=== PATIENT | male | born 1960 | race Caucasian/White ===

== ENCOUNTER 2019-07-22 15:58 | Inpatient (IN) | payer MEDICAID ==
[2019-07-22] VITALS (17 sets, daily range): BP systolic 85–132; BP diastolic 42–91; BMI 24.0
[~2019-07-22] VITALS: Ht 177.8 cm; Wt 76.0 kg
--- NOTE | ~2019-07-22 | HEMODYNAMI ---
PATIENT:LELIA YOUNG MEDICAL RECORD: [id number] : 60 LOCATION:[facility] ADMISSION DATE: 07/22/19 Generatedon:07/23/20199:06 Patient name: LELIA YOUNG Patient #: [id number] SSN: [id number] : 1960 Date of study: 07/23/2019 Page: Of Hemodynamic Procedure Report Patient Data Patient Demographics Procedure consent was obtained First Name: LELIA Gender: Male Last Name: HANNAH : 1960 Patient #: [id number] Age: 58 year(s) Race: SSN: [id number] Additional ID: [id number] Contact details [address]: [address] [place] [address] State: [place] City: [place] Zip code: [address] Past Medical History Allergies: No known allergies Admission Admission Data Admission Date: 07/22/2019 Admission Time: 17:53 Arrival Date: 07/23/2019 Arrival Time: 0:00 Room #: AJ Height (in.): 70.08 BSA: 1.94 (m2) Height (cm.): 178 BMI: 23.99 (kg/m2) Weight (lbs.): 167.55 Weight (kg.): 76 Lab Results Lab Result Date: 07/23/2019 Lab Result Time: 0:00 Biochemistry Name Units Result Min Max BUN mg/dl 11 --(-*--)-- 7 18 Creatinine mg/dl 1 --(--*-)-- 0.6 1.3 eGFR ml/min 81 *-(----)-- 90 120 NONAFRICAN CBC Name Units Result Min Max Hematocrit % 45.8 --(-*--)-- 42 54 Hemoglobin g/dl 14.9 --(-*--)-- 13.5 17.5 Procedure Procedure Types Cath Procedure Diagnostic Procedure C [facility] w/Coronaries Sedation Charges Moderate Sedation up to 45 minutes PCI Procedure Coronary Stent Coronary Stent Initial Hemochron ACT Test Peripheral Cath Diagnostic Procedure Abd/Extremity Aortagram Procedure Description Procedure Date Procedure Date: 07/23/2019 Procedure Start Time: 7:37 Procedure End Time: 8:26 Procedure Staff Name Function Gael Bhatt MD Performing Physician Pratibha Casey RT Monitor Eve Templeton RT Scrub Taryn Emerita RT Monument Setter Suzanne Floyd RN Nurse Procedure Data Cath Procedure Fluoroscopy Diagnostic fluoroscopy Total fluoroscopy Time: 6.4 time: 6.4 min min Diagnostic fluoroscopy Total fluoroscopy dose: 748 dose: 748 mGy mGy Contrast Material Contrast Material Type Amount (ml) Isovue 300 109 Entry Location Entry Primary Successful Side Size Upsize Upsize Entry Closure Succes sful Closure Location (Fr) 1 (Fr) 2 (Fr) Remarks Device Remarks Femoral Left 6 Fr Exoseal artery Short Estimated blood loss: 10 ml Diagnostic catheters Device Type Used For End Catheter Placement MULTIPACK JL 4.0 5Fr Left Coronary catheter Angiography MULTIPACK 3DRC 5Fr Right Coronary catheter Angiography MULTIPACK Pigtail 5 Fr LV Angiography catheter Procedure Complications No complications Procedure Medications Medication Administration Route Dosage 0.9% NaCl I.V. 100 ml/hr Oxygen etCO2 Nasal cannula 2 l/min Lidocaine 2% added to field 20 Heparin Flush Bag added to field 2 bags (1000units/500ml NS) Versed I.V. 2 mg Fentanyl I.V. 50 mcg Versed I.V. 2 mg Fentanyl I.V. 50 mcg Versed I.V. 2 mg Heparin Bolus I.V. 7500 units Plavix P.O. 600 mg Hemodynamics Rest BSA: 1.94 (m2) HGB: 14.9 (g/dl) O2 Consumption: Estimated: 236.31 (ml/min) O2 Co nsumption indexed: Estimated:121.81 (ml/min/m) Heart Rate: 80 (bpm) Pressure Samples Time Site Value (mmHg) Purpose Heart Use Rate(bpm) 8:01 LV 86/2,18 Snapshot 72 8:02 LV 88/6,19 Pullback 70 8:02 AO 81/52(64) Pullback 70 Gradients Valve Time Site 1 Site 2 Mean SEP/DFP Peak To Heart Use (mmHg) (sec/min) Peak Rate (mmHg) (bpm) Aortic 8:02 LV AO 8 19 7 70 88/6,19 81/52(64) Calculations Valve P-P Mean Valve Index Valve Source Name Gradient Area Flow (cm2) Aortic 7 8 7 8 Snapshots Pre Cath Intra NCS Post Cath Vital Signs Time Heart Resp SPO2 etCO2 NIBP Rhythm Pain Sedation Rate (ipm) (%) (mmHg) (mmHg) Status Level (bpm) 7:27:46 77 18 97 17.9 124/80(99) NSR 0 (11) 10(A) , No pain 7:32:00 78 23 98 12.6 120/71(83) NSR 0 (11) 10(A) , No pain 7:36:12 76 20 96 16.4 99/69(82) NSR 0 (11) 10(A) , No pain 7:40:14 75 20 98 12 109/78(89) NSR 0 (11) 10(A) , No pain 7:44:20 74 34 98 15.6 94/75(81) NSR 0 (11) 10(A) , No pain 7:48:19 75 19 97 22.4 107/74(83) NSR 0 (11) 10(A) , No pain 7:52:25 72 16 97 22.4 86/69(77) NSR 0 (11) 9(A) , No pain 7:56:23 76 18 98 21.6 98/70(80) NSR 0 (11) 9(A) , No pain 8:00:28 71 18 97 23.9 93/63(74) NSR 0 (11) 9(A) , No pain 8:04:30 73 24 98 23.1 101/69(83) NSR 0 (11) 9(A) , No pain 8:08:36 74 15 98 23.8 95/63(72) NSR 0 (11) 9(A) , No pain 8:12:40 75 30 97 23.1 96/64(76) NSR 0 (11) 9(A) , No pain 8:16:46 76 18 97 19.4 100/60(76) NSR 0 (11) 9(A) , No pain 8:20:51 75 21 94 20.9 105/66(78) NSR 0 (11) 9(A) , No pain 8:24:55 81 9 94 19.4 94/79(88) NSR 0 (11) 9(A) , No pain Medications Time Medication Route Dose Verified Delivered Reason Notes Effectiveness by by 7:31:05 0.9% NaCl I.V. 100 Gael Suzanne used for ml/hr Miller Floyd nutrition representative 7:31:12 Oxygen etCO2 2 Gael Suzanne used for Nasal l/min Miller Floyd procedure cannula RN 7:31:18 Lidocaine 2% added 20ml Gael Gael for local to vial Miller Bhatt MD anesthetic field 7:31:23 Heparin Flush added 2 Gael Gael used for Bag to bags Miller Bhatt MD procedure (1000units/500ml field NS) 7:31:33 Versed I.V. 2 mg Gael Suzanne for sedation Miller Floyd RN 7:31:38 Fentanyl I.V. 50 Gael Suzanne for sedation mcg Miller Floyd RN 7:38:41 Versed I.V. 2 mg Gael Suzanne for sedation Miller Floyd RN 7:38:48 Fentanyl I.V. 50 Gael Suzanne for sedation mcg Miller Floyd RN 7:43:54 Versed I.V. 2 mg Gael Suzanne for sedation Miller Floyd RN 8:04:13 Heparin Bolus I.V. 7500 Gael Suzanne for verifi ed units Miller Floyd anticoagulation with Dr. SAMINA Bhatt 8:26:05 Plavix P.O. 600 Gael Suzanne for mg Miller Floyd antiplatelet RN therapy Procedure Log Time Note 7:08:16 Informed consent obtained and on chart 7:09:01 Procedure Status Urgent Heart Cath (IP). 7:09:02 Time tracking: Regular hours (M-F 7:00 - 5:00) 7:09:11 Plan of Care:Hemodynamics will remain stable., Cardiac rhythm will remain stable., Comfort level will be maintained., Respiratory function will remain adequate., Patient/ family verbilizes understanding of procedure., Procedure tolerated without complication., Recovers from procedure without complications.. 7:11:46 Suzanne Floyd RN sent for patient. Start room use. 7:15:52 Lab Result : Hemoglobin 14.9 g/dl 7:15:52 Lab Result : Hematocrit 45.8 % 7:15:52 Lab Result : eGFR NONAFRICAN 81 ml/min 7:15:52 Lab Result : BUN 11 mg/dl 7:15:52 Lab Result : Creatinine 1 mg/dl 7:16:37 Arrival Date: 07/23/2019 12:00:00 AM 7:16:45 Patient Height : 70.08 inches 7:16:52 Patient Weight : 167.55 lbs 7:21:16 Patient received from CVICU to CCL 1 Alert and oriented. Tansferred to table in Supine position. 7:21:18 Warm blankets applied, and ruba hugger turned on for patient comfort. 7:21:19 Correct patient and procedure confirmed by team. 7:21:20 ECG and BP/O2 sat monitors applied to patient. 7:21:40 Patient allergic to No known allergies 7:21:53 Risk of Mortality: 0.6 7:21:57 Risk of blood transfusion: 0.5 7:22:02 Risk of JEISON: 4.7 7:22:08 Lab results completed and on chart. 7:22:14 Stress Test: no; N/A ? 7:22:39 ACC Patient presents with STEMI CCS Anginal Class 4--Inability to carry out any physical activity w/o angina. Angina may occur at rest. 7:22:54 H&P Date Dictated: 07/23/2019 Within 30 days and on chart., ER History on chart.. 7:22:57 Pre-procedure instructions explained to patient. 7:22:59 Pre-op teaching completed and patient verbalized understanding. 7:23:01 Family unavailable. 7:23:04 Patient NPO since Midnight. 7:23:13 Is the patient allergic to Iodine/contrast media? No. 7:23:16 Was the patient premedicated? Yes 7:23:26 Is patient on blood thinner?Yes 7:23:31 ACC The patient was administered the following blood thiners within the last 24 hours: ACCLovenox 7:26:47 Vital chart was started 7:26:51 Baseline sample Acquired. 7:27:11 Rhythm: sinus rhythm 7:27:14 Full Disclosure recording started 7:27:15 7:27:19 Patient diabetic? No. 7:27:24 ----Pre-sedation anethsthesia assessment.---- 7:27:29 Previous problem with sedation/anesthesia? No ? 7:27:34 Snore? Yes 7:27:37 Sleep apnea? Unknown 7:27:40 Deviated septum? Unknown 7:27:43 Opens mouth fully? Yes 7:27:45 Sticks out tongue? Yes 7:27:57 Airway obstruction? Unknown ? 7:28:01 Dentures? No ? 7:28:06 Pre procedure: right dorsailis pedis pulse 1+ Palpable, but thready & weak; easily obliterated 7:28:37 IV patent on arrival in left forearm with 0.9% NaCl at KVO. 7:28:45 Right groin area was prepped with chlora-prep and draped in sterile fashion 7:28:50 Alarms reviewed by R. N. 7:28:51 Sharps counted by scrub and verified by R.N. 7:28:56 Physician arrived 7::57 --------ALL STOP TIME OUT------ 7:28:59 Final Timeout: patient, procedure, and site verified with staff and physician. All members of the team are in agreement. 7:29:01 Right groin site verified by team. 7:29:09 Fire Safety Assessment: A--An alcohol-based skin anteseptic being used preoperatively., C--Open oxygen or nitrous oxide is being used., D--An ESU, laser, or fiber-optic light is being used. 7:29:15 Physical assessment completed. ASA score P 2 - A patient with mild systemic disease as per Gael Bhatt MD. 7:29:21 2) 60-89 Mildly reduced kidney function, and other findings (as for stage 1) point to kidney disease. 7:29:26 Maximum allowable contrast dose (3.7 X eGFR X 0.75)224 ml. 7:29:35 Sedation plan: IV Moderate Sedation Medication:Versed, Fentanyl 7:29:42 Use device set Femoral Dx 7:29:44 ACIST Syringe (02499) opened to sterile field. 7:29:45 Bag Decanter (2001S) opened to sterile field. 7:29:46 Medline Cath Pack ([id number]) opened to sterile field. 7:29:48 ACIST Hand Control (41577) opened to sterile field. 7:29:49 ACIST Manifold (43898) opened to sterile field. 7:29:50 DIAGNOSTIC Multipack 5Fr catheter set ([id number]) opened to sterile field. 7:29:51 Tegaderm 4 x 4 (1626W) opened to sterile field. 7:29:53 EMERALD Guide Wire (258-878) opened to sterile field. 7:30:06 SHEATH 6FR [employer] (OGJ244) opened to sterile field. 7:30:57 Quick Combo opened to sterile field. 7:31:05 0.9% NaCl 100 ml/hr I.V. was administered by Suzanne Floyd RN; used for procedure; Verbal order read back and verified. 7:31:12 Oxygen 2 l/min etCO2 Nasal cannula was administered by Suzanne Floyd RN; used for procedure; Verbal order read back and verified. 7:31:18 Lidocaine 2% 20ml vial added to field was administered by Gael Bhatt MD; for local anesthetic; Verbal order read back and verified. 7:31:23 Heparin Flush Bag (1000units/500ml NS) 2 bags added to field was administered by Gael Bhatt MD; used for procedure; Verbal order read back and verified. 7:31:33 Versed 2 mg I.V. was administered by Suzanne Floyd RN; for sedation; Verbal order read back and verified. 7:31:38 Fentanyl 50 mcg I.V. was administered by Suzanne Floyd RN; for sedation; Verbal order read back and verified. 7:36:13 Procedure started. 7:37:32 Local anesthetic to right femoral artery with Lidocaine 2% by Gael Bhatt MD.INITIAL ACCESS ONLY 7:37:36 Zero performed for pressure channel P1 7:38:00 Zero performed for pressure channel P1 7:38:41 Versed 2 mg I.V. was administered by Suzanne Floyd RN; for sedation; Verbal order read back and verified. 7:38:48 Fentanyl 50 mcg I.V. was administered by Suzanne Everett RN; for sedation; Verbal order read back and verified. 7:39:34 EVE CONTACTED MS. OKO FOR START OF PROCEDURE. 7:40:16 UNABLE TO ACCESS THE RIGHT GROIN. LEFT GROIN PREPPED. 7:43:20 Left groin area was prepped with chlora-prep and draped in sterile fashion 7:43:33 Local anesthetic to left femerol artery with Lidocaine 2% by Gael Bhatt MD.ADDITIONAL ACCESS 7:43:54 Versed 2 mg I.V. was administered by Suzanne Floyd RN; for sedation; Verbal order read back and verified. 7:49:20 MICROPUNCTURE 4FR Cook (Q81441) opened to sterile field. 7:54:38 Access obtained with 4Fr micropunture. 7:54:59 A 6 Fr Short sheath was inserted into the Left Femoral artery 7:55:55 A MULTIPACK JL 4.0 5Fr catheter was advanced over the wire and used for Left Coronary Angiography. 7:56:34 LCA angiography performed. 7:56:38 Injector settings: Ml/sec: 3, Volume: 6, 7:58:29 Catheter removed. 7:58:39 A MULTIPACK 3DRC 5Fr catheter was advanced over the wire and used for Right Coronary Angiography. 7:59:16 RCA angiography performed. 7:59:29 Injector settings: Ml/sec: 3, Volume: 6, 7:59:49 ACCDominant side:Right 7:59:53 Catheter removed. 8:00:01 A MULTIPACK Pigtail 5 Fr catheter was advanced over the wire and used for LV Angiography. 8:00:15 TUBING High Pressure Extension Tubing (Miller) ([id number]) opened to sterile field. 8:00:52 GUIDE 6FR JR 4.0 catheter ([id number]) opened to sterile field. 8:01:06 LV gram done using CONTRERAS 8:01:37 Injector settings: Ml/sec: 5, Volume: 15, 8:01:50 LV hemodynamics recorded. 8:02:11 EF : 45 % 8:03:11 Abdominal Aortagram was performed. 8:03:24 Catheter removed. 8:03:26 Proceeding to intervention. 8:03:29 BMW 300cm [place] 2 J wire ([id number]) opened to sterile field. 8:03:31 INFLATOR Merit Becky (OZ4769) opened to sterile field. 8:03:40 ACC Pre-intervention VASILE Flow is 3. 8:04:05 Pre PCI Site: [place] mRCA has 90% stenosis. 8:04:13 Heparin Bolus 7500 units I.V. was administered by Suzanne Floyd RN; for anticoagulation; verified with Dr. Bhatt Verbal order read back and verified. 8:04:19 6 Fr JR4 guide catheter was inserted over the wire 8:04:46 NOB324 wire advanced. 8:07:28 Wire advanced across lesion. 8:10:41 Place stent Inflation Number: 1 A INTEGRITY RX 3.0 x 30 stent ([id number]) was prepped and advanced across the Mid RCA . The stent was deployed at 14 TRAM for 0:22 (min:sec) . 8:11:26 Inflation number: 2 The stent balloon was then re-inflated across the Mid RCA to 6 TRAM for 0:11 (min:sec) . 8:11:55 Stent catheter was removed intact over wire. 8:14:07 Place stent Inflation Number: 1 A INTEGRITY RX 3.5 x 30 stent ([id number]) was prepped and advanced across the Prox RCA . The stent was deployed at 14 TRAM for 0:08 (min:sec) . 8:14:57 Stent catheter was removed intact over wire. 8:15:05 Wire removed. 8:15:07 Guide catheter removed. 8:15:49 EXOSEAL 6Fr (EX600) opened to sterile field. 8:16:57 Sheath removed intact; hemostasis achieved with Exoseal to the Left Femoral artery. 8:17:53 Procedure ended.(Physican Out) 8:18:02 Contrast amount:Isovue 300 109ml. 8:18:09 Maximum allowable dose exceeded? No. 8:18:17 Fluoroscopy time 06.40 minutes. 8:18:25 Fluoroscopy dose: 748 mGy 8:18:25 Flurop Dose total: 748 8:18:36 Dose Area Product 86858 mGy/cm. 8:18:42 Sharps counted by scrub and verified by R.N. 8:18:46 Insertion/operative site no bleeding no hematoma. 8:18:52 Post-op/insertion site Left Femoral artery dressed using a 4 x 4 and Tegaderm. 8:19:06 Post left femerol artery:stable 8:19:22 Post-procedure physical assessment completed. ASA score P 2 - A patient with mild systemic disease as per Gael Bhatt MD. 8:19:23 ACT drawn and resulted at >400- out of range seconds. (normal therapeutic range 180-240 seconds). 8:19:29 Post procedure rhythm: sinus rhythm 8:19:34 Estimated blood loss: 10 ml 8:19:57 Post procedure instruction explained to patient.Patient verbalizes understanding. 8:19:59 Patient needs reinforcement of post procedure teaching. 8:22:24 Procedure type changed to Cath procedure, Diagnostic procedure, LHC, C w/Coronaries, Sedation Charges, Moderate Sedation up to 45 minutes, PCI procedure, Coronary Stent, Coronary Stent Initial, Hemochron ACT Test, Peripheral Cath Diagnostic Procedure, Abd/Extremity, Aortagram 8:22:28 Procedure and supply charges have been captured, reviewed, submitted and are correct. 8:25:06 Procedure Complication : No complications 8:25:09 Vital chart was stopped 8:25:13 [facility] Findings: MVD- PCI performed (see procedure note) 8:25:17 Operative report dictated upon procedure completion. 8:25:18 See physician's report for complete and final results. 8:25:21 Report given to CVICU. 8:25:26 Patient transfered to CVICU with Bed. 8:26:05 Plavix 600 mg P.O. was administered by Suzanne Floyd RN; for antiplatelet therapy; Verbal order read back and verified. 8:26:45 Full Disclosure recording stopped 8:26:45 Procedure ended. 8:27:03 ACC-PCI Only Patient was given prescriptions, or instructed by Gael Bhatt MD to start/continue the following medications upon discharge: Plavix 8:27:04 End room use (Document Last) 9:04:43 Late entry: Multiple attempts have been made post procedure to educate pt on importance of straight posture post femoral cath. Pt educated multiple times w/out understanding stating "I don't know what difference it makes if I lift my head or move my leg. Pt refusing orders to remain in bed with left leg straight and head flat on pillow. Pt stated he wants his discharge papers and he's "not staying to put up with this". Dr. Bhatt notified of pt's noncompliance. Intervention Summary Intervention Notes Time ActionType Lesion and Equipment Action# Pressure Duration Attributes Used 8:10:41 Place stent Mid RCA INTEGRITY RX 1 14 00:22 3.0 x 30 stent ([id number]) 8:11:26 Reinflate Mid RCA INTEGRITY RX 2 6 00:11 stent 3.0 x 30 balloon stent ([id number]) 8:14:07 Place stent Prox RCA INTEGRITY RX 1 14 00:08 3.5 x 30 stent ([id number]) Device Usage Item Name Manufacture Quantity Catalog Hospital Part Current Mini mal Lot# / Number Charge Number Stock Stock Serial# Code ACIST Syringe Acist 1 15472 151521 810565 477001 20 (66003) Medical Systems Inc Bag Decanter Microtek 1 2001S 815541 76731 870766 5 (2001S) Medical Inc. Medline Cath Medline 1 [id number] 121674 97184 359323 5 Pack ([id number]) ACIST Hand Acist 1 82839 273878 645214 939524 5 Control Medical (27633) Systems Inc ACIST Acist 1 81389 463264 035413 774832 5 Manifold Medical (47241) Systems Inc DIAGNOSTIC Cardinal 1 DE5250 389249 30051 418901 30 Multipack 5Fr Health catheter set (EQ2000) Tegaderm 4 x 3M 1 1626W 094644 437468 166935 5 4 (1626W) EMERALD Guide Cardinal 1 502-455 414641 605547 909249 5 Wire Health (502-455) SHEATH 6FR Terumo 1 IDW175 873806 542287 099990 40 [employer] (VXX052) Quick Combo Edge Systems 1 48929-196862 771651 534539 103793 5 MICROPUNCTURE Wildcard Medical 1 G67889 513220 704978 108478 5 4FR Wildcard ([id number]) MULTIPACK JL Cardinal 1 739571 5 4.0 5Fr Health catheter MULTIPACK Cardinal 1 081191 5 3DRC 5Fr Health catheter MULTIPACK Cardinal 1 465089 5 Pigtail 5 Fr Health catheter BMW 300cm Rojas 1 [id number] 470252 276799 879062 5 [place] 2 J Vascular wire ([id number]) INFLATOR Merit 1 UL6974 797624 672271 950811 15 [facility] BasixCompak (SB5088) GUIDE 6FR JR Medtronic 1 [id number] 519917 53963 629335 1 4.0 catheter (WB6SB23) INTEGRITY RX Medtronic 1 [id number] 538500 090379 153276 5 [id number] 3.0 x 30 stent ([id number]) INTEGRITY RX Medtronic 1 [id number] 901739 632090 907250 5 [id number] 3.5 x 30 stent ([id number]) EXOSEAL 6Fr Cardinal 1 EX600 613826 463725 950765 10 (EX600) Health TUBING High [facility] 1 [id number] 682669 07305 272083 10 Pressure Medical Extension Tubing (Miller) ([id number]) Signature Audit [place] Stage Time Signature Unsigned Intra-Procedure 07/23/2019 Eve 8:27:37 AM Yokasta RT(R) (CV) Intra-Procedure 07/23/2019 Suzanne Floyd 8:28:11 AM RN Intra-Procedure 07/23/2019 Gael Bhatt MD 8:28:41 AM 07/23/2019 8:56:31 AM Intra-Procedure 07/23/2019 Suzanne Floyd 9:05:36 AM RN Intra-Procedure 07/23/2019 Gael Bhatt MD 9:06:31 AM [place] [place] [address]
--- NOTE | 2019-07-22 16:52 | NUR ---
#1 NS BOLUS COMPLETED. BP 92/49 (63) DR GILL NOTIFIED
[2019-07-22 16:56] LABS: BASOPHILS 0.1 % (0-2); EOSINOPHILS 0.2 % (0-7); HEMATOCRIT 44.8 % (42.0-54.0); HEMOGLOBIN 14.8 g/dL (13.5-17.5); IMMATURE GRANULOCYTES 0.6 % (0-5); LYMPHOCYTES 18.9 % (15-50); MCH 34.6 pg (26.0-34.0); MCV 104.7 fL (80.0-100.0); MEAN PLATELET VOLUME 9.1 fL (7.4-10.4); MONOCYTES 8.5 % (2-11); NEUTROPHILS 71.7 % (40-80); PLATELET COUNT 301 10x3/uL (130-400); RBC 4.28 10x6/uL (4.20-6.10); RDW 14.5 % (11.5-14.5); WBC 15.1 10x3/uL (4.8-10.8)
--- NOTE | 2019-07-22 17:05 | NUR ---
CAREDIAC CATH EXPL TO PT, CONSENT SIGNED/WITNESSED
[2019-07-22 17:07] LABS: APTT 40.3 SECONDS (22.8-39.4); INR 1.08 (0.85-1.17); PROTIME 13.9 SECONDS (11.6-15.0)
[2019-07-22 17:26] LABS: ALKALINE PHOSPHATASE 88 U/L (30-120); ALT (SGPT) 48 U/L (10-68); BILIRUBIN - TOTAL 0.63 mg/dL (0.2-1.3); CALC OSMOLALITY 281 mosm/kg (275-300); CALCIUM 7.5 mg/dL (8.5-10.1); CARBON DIOXIDE 22.8 mmol/L (21.0-32.0); CHLORIDE - SERUM 110 mmol/L (98-107); CKMB 51.3 U/L (0.0-3.6); CREATINE KINASE 497 UL (21-232); GLUCOSE 144 mg/dL (74-106); MAGNESIUM - SERUM 1.5 mg/dL (1.8-2.4); POTASSIUM - SERUM 4.8 mmol/L (3.5-5.1); PROTEIN - SERUM 6.3 g/dL (6.4-8.2); SODIUM 140 mmol/L (136-145); UREA NITROGEN 13 mg/dL (7-18); eGFR NON AFRICAN AMERICAN 81 mL/min (90-120)
[2019-07-22 17:32] LABS: TROPONIN-I 4.704 ng/mL (0.000-0.060)
[2019-07-22 17:34] LABS: CHOL - HDL RATIO 4.7 ratio (2.3-4.9); LDL-HDL RATIO 2.8 ratio (1.5-3.5)
--- NOTE | 2019-07-22 17:34 | NUR ---
CRITICAL LAB: TROPONIN 4.[address] G[address] BROWN NOTIFIED
--- NOTE | 2019-07-22 18:00 | NUR ---
RESTING IN BED WITH EYES CLOSED AND SNORING RESP. AROUSES EASILY DENIES C/O. VSS.
--- NOTE | 2019-07-22 19:07 | NUR ---
REPORT TO SAMINA CAN
--- NOTE | 2019-07-22 19:25 | NUR ---
PT BROUGHT TO ROOM FROM ER VIS STRETCHER, PT AAOX3, PT DENIES PAIN OR DISTRESS, PT PLACED ON MONITORS. VSS AT THIS TIME
--- NOTE | 2019-07-22 21:00 | NUR ---
Patient awake alert oriented talking on the phone with family, patient denies any discomfort or distress at this time. Vital signs are stable we will continue to monitor for changes.
--- NOTE | 2019-07-22 23:00 | NUR ---
Patient reassessment complete at this time, no changes noted from previous exam. Patient resting with eyes closed, respirations even nonlabored. Vital signs stable at this time.
[2019-07-23] VITALS (18 sets, daily range): BP systolic 75–122; BP diastolic 30–83; Ht 177.8 cm; Wt 76.0 kg
--- NOTE | 2019-07-23 01:00 | NUR ---
Patient resting in bed with eyes closed, respirations even nonlabored, no distress noted, vital signs stable at this time.
[2019-07-23 02:22] LABS: CKMB 320.3 U/L (0.0-3.6); CREATINE KINASE 2743 UL (21-232); TROPONIN-I 115.699 ng/mL (0.000-0.060)
--- NOTE | 2019-07-23 03:00 | NUR ---
Patient reassessment complete at this time, no change noted from previous exam. Vital signs stable at this time.
[2019-07-23 05:26] LABS: BASOPHILS 0.2 % (0-2); EOSINOPHILS 0.4 % (0-7); HEMATOCRIT 45.8 % (42.0-54.0); HEMOGLOBIN 14.9 g/dL (13.5-17.5); IMMATURE GRANULOCYTES 0.2 % (0-5); LYMPHOCYTES 44.3 % (15-50); MCH 33.8 pg (26.0-34.0); MCHC 32.5 g/dL (31.0-37.0); MCV 103.9 fL (80.0-100.0); MEAN PLATELET VOLUME 9.3 fL (7.4-10.4); MONOCYTES 10.1 % (2-11); NEUTROPHILS 44.8 % (40-80); PLATELET COUNT 302 10x3/uL (130-400); RBC 4.41 10x6/uL (4.20-6.10); RDW 14.7 % (11.5-14.5); WBC 12.5 10x3/uL (4.8-10.8)
--- NOTE | 2019-07-23 05:29 | NUR ---
Patient given chlorhexidine gluconate bath at this time, patient was also clipped and prepped for Powder Cutting Operator to right wrist and bilateral groin. Patient denies any pain or discomfort at this time, vital signs stable we will continue to monitor for changes.
[2019-07-23 05:44] LABS: APTT 35.7 SECONDS (22.8-39.4); INR 0.99 (0.85-1.17)
[2019-07-23 06:17] LABS: CALC OSMOLALITY 274 mosm/kg (275-300); CALCIUM 8.5 mg/dL (8.5-10.1); CARBON DIOXIDE 23.8 mmol/L (21.0-32.0); CHLORIDE - SERUM 107 mmol/L (98-107); GLUCOSE 98 mg/dL (74-106); PHOSPHOROUS 2.6 mg/dL (2.5-4.9); POTASSIUM - SERUM 4.3 mmol/L (3.5-5.1); PRO BNP 1229 pg/mL (0-125); SODIUM 138 mmol/L (136-145); UREA NITROGEN 11 mg/dL (7-18); eGFR NON AFRICAN AMERICAN 81 mL/min (90-120)
[2019-07-23 06:21] LABS: CKMB 346.2 U/L (0.0-3.6); CREATINE KINASE 2801 UL (21-232); MAGNESIUM - SERUM 2.3 mg/dL (1.8-2.4)
[2019-07-23 06:46] LABS: TROPONIN-I 107.181 ng/mL (0.000-0.060)
--- NOTE | 2019-07-23 08:34 | NUR ---
PT RECIEVED FROM PAID SEARCH SPECIALIST VIA BED. VSS. PPP.
[2019-07-23] MEDS ORDERED: Nicoderm [PBKC] TRANSDERM (12:50)
[2019-07-23] MEDS ORDERED: COREG6.25 MG PO (12:51)
[2019-07-23] MEDS ORDERED: PLAVIX75 MG PO (12:51)
[2019-07-23] MEDS ORDERED: LIPITOR10 MG PO (12:52)
--- NOTE | 2019-07-23 13:10 | NUR ---
DC INSTRUCTION GIVEN. VERBALIZES UNDERSTANDING. PIVS ARE DC'D. PT OOB AND GETTING DRESSED.
== END 2019-07-23 13:35 | disposition home or self-care (01) | DRG 249 ==
LOC: D.ER 15:58 → D.CVICU 17:53
PROVIDERS: Family Medicine; Internal Medicine Cardiovascular Disease; ADMIT Internal Medicine Nephrology; ATTEND Internal Medicine Nephrology
PROC: B2111ZZ Fluoroscopy of Multiple Coronary Arteries using Low Osmolar Contrast (ICD-10-PCS; 2019-07-23)
PROC: B2151ZZ Fluoroscopy of Left Heart using Low Osmolar Contrast (ICD-10-PCS; 2019-07-23)
PROC: 02703EZ Dilation of Coronary Artery, One Artery with Two Intraluminal Devices, Percutaneous Approach (ICD-10-PCS; principal; 2019-07-23 07:10)
PROC: 4A023N7 Measurement of Cardiac Sampling and Pressure, Left Heart, Percutaneous Approach (ICD-10-PCS; 2019-07-23 07:10)
DX: I21.19 ST elevation (STEMI) myocardial infarction involving other coronary artery of inferior wall (principal); F17.203 Nicotine dependence unspecified, with withdrawal; I47.2 Ventricular tachycardia; E83.42 Hypomagnesemia; D75.89 Other specified diseases of blood and blood-forming organs; K75.9 Inflammatory liver disease, unspecified; I10 Essential (primary) hypertension; I25.119 Atherosclerotic heart disease of native coronary artery with unspecified angina pectoris